=== PATIENT | female | born 1995 | race Caucasian/White ===

== ENCOUNTER → 2023-06-28 07:33 | Outpatient (REF) | payer OTHER, SELFPAY | LOC: PNTC 07:33 | PROVIDERS: ATTENDING PHYSICIAN Obstetrics & Gynecology | DX: O99.210 Obesity complicating pregnancy, unspecified trimester (principal) | CPT/HCPCS: 76805 ==

== ENCOUNTER → 2023-07-26 09:52 | Outpatient (REF) | payer OTHER, SELFPAY | LOC: PNTC 09:52 | PROVIDERS: ATTENDING PHYSICIAN Obstetrics & Gynecology | DX: O99.210 Obesity complicating pregnancy, unspecified trimester (principal) | CPT/HCPCS: 76811 ==

== ENCOUNTER → 2023-09-05 08:53 | Outpatient (REF) | payer OTHER, SELFPAY | LOC: PNTC 08:53 | PROVIDERS: ATTENDING PHYSICIAN Obstetrics & Gynecology | DX: O99.210 Obesity complicating pregnancy, unspecified trimester (principal) | CPT/HCPCS: 76816 ==

== ENCOUNTER → 2023-10-17 09:02 | Outpatient (REF) | payer OTHER, SELFPAY | LOC: PNTC 09:02 | PROVIDERS: ATTENDING PHYSICIAN Obstetrics & Gynecology | DX: O99.210 Obesity complicating pregnancy, unspecified trimester (principal) | CPT/HCPCS: 59025; 76816; 86850; 86900; 86901; J2790 ==

== ENCOUNTER → 2023-10-31 09:01 | Outpatient (REF) | payer OTHER, SELFPAY | LOC: PNTC 09:01 | PROVIDERS: ATTENDING PHYSICIAN Obstetrics & Gynecology | DX: O99.210 Obesity complicating pregnancy, unspecified trimester (principal) | CPT/HCPCS: 59025; 76815 ==

== ENCOUNTER → 2023-11-07 08:59 | Outpatient (REF) | payer OTHER, SELFPAY | LOC: PNTC 08:59 | PROVIDERS: ATTENDING PHYSICIAN Obstetrics & Gynecology | DX: O99.210 Obesity complicating pregnancy, unspecified trimester (principal) | CPT/HCPCS: 59025; 76815 ==

== ENCOUNTER → 2023-11-14 08:54 | Outpatient (REF) | payer OTHER, SELFPAY | LOC: PNTC 08:54 | PROVIDERS: ATTENDING PHYSICIAN Obstetrics & Gynecology | DX: O99.210 Obesity complicating pregnancy, unspecified trimester (principal) | CPT/HCPCS: 59025; 76816 ==

== ENCOUNTER → 2023-11-21 08:56 | Outpatient (REF) | payer OTHER, SELFPAY | LOC: PNTC 08:56 | PROVIDERS: ATTENDING PHYSICIAN Obstetrics & Gynecology | DX: O99.210 Obesity complicating pregnancy, unspecified trimester (principal) | CPT/HCPCS: 59025; 76815 ==

== ENCOUNTER → 2023-11-28 08:58 | Outpatient (REF) | payer OTHER, SELFPAY | LOC: PNTC 08:58 | PROVIDERS: ATTENDING PHYSICIAN Obstetrics & Gynecology | DX: O99.210 Obesity complicating pregnancy, unspecified trimester (principal) | CPT/HCPCS: 59025; 76815 ==

== ENCOUNTER 2023-12-04 06:46 | Inpatient (IN) | payer OTHER, SELFPAY ==
[2023-12-04 06:57] VITALS: BP 145/87; BMI 43.8
[2023-12-04] MEDS: LR 1000 IV (07:30)
[2023-12-04 07:44] LABS: Hematocrit 33.3 % (37.0-47.0); Hemoglobin 10.9 g/dL (12.0-16.0); Mean Corp Hgb Conc. 32.7 g/dL (33.0-37.0); Mean Corpuscular Hgb 26.3 pg (27.0-31.0); Mean Corpuscular Volume 80.4 fL (81.0-99.0); Mean Platelet Volume 10.7 fL (7.4-10.4); Platelet Count 265 10^3/uL (130-400); Red Blood Cell Count 4.14 10^6/uL (4.20-5.40); Red Cell Dist. Width 13.8 % (11.5-14.5)
[2023-12-04] MEDS: TYLENOL 1000 MG PO (08:10)
[2023-12-04 08:45] LABS: ALT (SGPT) 10 U/L (0-35); AST (SGOT) 15 U/L (14-36); Albumin 3.5 g/dl (3.5-5.0); Alkaline Phosphatase 205 U/L (38-126); Blood Urea Nitrogen 5 mg/dl (7-17); Calcium 9.4 mg/dl (8.4-10.2); Carbon Dioxide 18 mmol/L (22-30); Chloride 108 mmol/L (98-107); Estimated Creatinine Clearance > 125 ml/min; Glucose 87 mg/dl (70-99); Potassium 4.4 mmol/L (3.5-5.1); Sodium 135 mmol/L (135-145); Total Bilirubin 0.3 mg/dl (0.2-1.3); Total Protein 6.3 g/dl (6.3-8.2); eGFR > 60.00
[2023-12-04] MEDS: BICITRA 30 ML PO (09:27)
[2023-12-04] MEDS: ANCEF 10 IV (09:27)
[2023-12-04] MEDS: PITOCIN 30 UNITS/NSS 500 ML IV (09:40)
[2023-12-04] MEDS: BENADRYL 25 MG IV (10:52)
[2023-12-04] MEDS: ZOFRAN 4 MG IV (13:58)
[2023-12-04] MEDS: TORADOL 15 MG IV ×2 (16:11→21:57)
[2023-12-04] MEDS: NORMOSOL-R 250 IV (18:47)
[2023-12-05] MEDS: TORADOL IV ×2 (04:24→04:25)
[2023-12-05] MEDS: FLUSH (NSS) 3 FLUSH IV (04:24)
[2023-12-05 04:48] LABS: Hematocrit 29.4 % (37.0-47.0); Hemoglobin 9.5 g/dL (12.0-16.0); Mean Corp Hgb Conc. 32.3 g/dL (33.0-37.0); Mean Corpuscular Hgb 26.9 pg (27.0-31.0); Mean Corpuscular Volume 83.3 fL (81.0-99.0); Mean Platelet Volume 10.5 fL (7.4-10.4); Platelet Count 233 10^3/uL (130-400); Red Blood Cell Count 3.53 10^6/uL (4.20-5.40); Red Cell Dist. Width 13.9 % (11.5-14.5); White Blood Cell Count 16.6 10^3/uL (4.8-10.8)
[2023-12-05] MEDS: TYLENOL 650 MG PO ×2 (04:53→21:05)
[2023-12-05] MEDS: SENOKOT-S 1 TABLET PO (07:50)
[2023-12-05] MEDS: MYLICON 80 MG PO (07:50)
--- NOTE | 2023-12-05 07:50 | W.PN.ANS.POP ---
Anesthesia Post Operative
- Anesthesia Post Op Note
Vital Signs Stable-See Nursing Note: Yes
Airway Patent: Yes
Adequate Pain Control: Yes
Change in Mental Status: No
Current Postoperative Nausea & Vomiting: No (pt did complain of nausea and vomiting after procedure but has improved)
Anesthesia Complications: No
General Anesthetic Recall: No
Unplanned Admission: No
Post Op Hydration Adequate: Yes
[2023-12-05] MEDS: TORADOL 15 MG IV (11:13)
[2023-12-05] MEDS: FEOSOL 325 MG PO (11:13)
[2023-12-05 12:35] LABS: Syphilis/T. pallidum Ab Reflex Negative (Negative)
[2023-12-05] MEDS: HYPERRHO S-D 1500 UNIT IM (14:36)
[2023-12-05] MEDS: MOTRIN 600 MG PO (21:05)
[2023-12-06] MEDS: SENOKOT-S 1 TABLET PO (07:31)
[2023-12-06] MEDS: FEOSOL 325 MG PO (07:31)
--- NOTE | 2023-12-06 17:58 | W.DS.TRANS ---
DC Summary - Document Improvement Specialist
-
Discharge Instructions:
Discharge Diagnosis/Procedures term , delivered; s/p PLTCS; GHTN
Instructions: Monitor BP at home at least twice daily. Inform your physician promptly if BPs are persistently elevated >140 systolic or >90 diastolic or for ANY severe range BPs >160 systolic or >110 diastolic, and/or for any signs/symptoms of
pre-eclampsia (headache that will not go away with medication, visual changes or upper abdominal pain). You should schedule a BP check with your [facility] [employer] [facility] [facility]'s office in 1-2wks.
Stand-Alone Forms: LDRP Delivery
[facility]P Hypertensive Disorders
Changes to Home Medications: No
Discharge Medications:
DC Medications w/original date entered in [facility]
1 tab PO DAILY 12/06/21
oxycodone 5 mg tablet 5 mg PO Q4H PRN pain not controlled with motrin and tylenol #5 tabs 12/06/23
Home Medication Changes
Pending Results: No
Total time spent discharging patient (in min): 30
== END 2023-12-06 18:40 | disposition home or self-care (01) | DRG 788 ==
LOC: LDRP 06:46
PROVIDERS: Obstetrics & Gynecology; ADMITTING PHYSICIAN Obstetrics & Gynecology
PROC: 6A550ZT Pheresis of Cord Blood Stem Cells, Single (ICD-10-PCS; 2023-12-04)
PROC: 10D00Z1 Extraction of Products of Conception, Low, Open Approach (ICD-10-PCS; 2023-12-04)
PROC: 3E0234Z Introduction of Serum, Toxoid and Vaccine into Muscle, Percutaneous Approach (ICD-10-PCS; 2023-12-05)
DX: O13.4 Gestational [pregnancy-induced] hypertension without significant proteinuria, complicating childbirth (principal); Z3A.39 39 weeks gestation of pregnancy; Z37.0 Single live birth; O99.214 Obesity complicating childbirth; K58.9 Irritable bowel syndrome, unspecified; Z23 Encounter for immunization
CPT/HCPCS: 80053; 85027; 85461; 86780; 86850; 86900; 86901; J2790